=== PATIENT | male | born 1950 | race African-American/Black ===

== ENCOUNTER → 2017-02-26 | Outpatient (CLI) | payer MEDICARE ==
[~2017-02-26] MED LIST: CANDESARTAN CIL16 MG PO; CRESTOR PO; LISINOPRIL10 MG PO; NAPROSYN500 MG PO
--- NOTE | ~2017-02-26 | EKG ---
PATIENT: SHANNON LOGAN UNIT #: [id number] Ventricular Rate: 56 BPM Atrial Rate: 56 BPM P-R Interval: 158 ms QRS Duration: 80 ms Q-T Interval: 400 ms QTC Calculation(Bezet): 386 ms P [place]: 69 degrees Calculated R [place]: 28 degrees Calculated T [place]: 43 degrees Diagnosis Line: Sinus bradycardia Diagnosis Line: Possible Left atrial enlargement Diagnosis Line: Borderline ECG Diagnosis Line: No previous ECGs available Diagnosis Line: Confirmed by BILL YU MD ([id number]) on 02/26/2017 Diagnosis Line: 11:38:42 PM INTERPRETING MD: AIMEE CARROLL
== END | disposition home or self-care (01) ==
LOC: CAMB 12:54
DX: Z01.810 Encounter for preprocedural cardiovascular examination (principal); K42.9 Umbilical hernia without obstruction or gangrene
CPT/HCPCS: 93005

== ENCOUNTER → 2017-03-05 | Day surgery (SDC) | payer MEDICARE ==
--- NOTE | ~2017-03-05 | OR ---
Unit #: [id number] #: [id number] Patient: SHANNON LOGAN [id number] [address] [place], [place] [address] [id number] O MR#: [id number] NAME: SHANNON LOGAN ROOM: Date of Procedure: 03/05/2017 Admission Date: 03/05/2017 Surgeon: Scott Oliveira Jr., M.D. : 1950 Attending Physician: Scott Oliveira Jr., M.D. Primary Care Physician: [facility] OPERATIVE REPORT INDICATIONS FOR PROCEDURE The patient is a 67-year-old black male, who recently presented to the office complaining of a tender chronic incarcerated umbilical hernia. He is brought in this time at his request for repair of this with reduction through an open incision. He understands the procedure including the risks, including that of recurrence, infection, intra-abdominal organ injury, and chronic pain, and consents. PREOPERATIVE DIAGNOSIS Chronic incarcerated umbilical hernia. POSTOPERATIVE DIAGNOSIS Chronic incarcerated umbilical hernia noting approximately 1 to 1.5 cm defect. ANESTHESIA General with LMA and 0.5% Marcaine with epinephrine locally. PROCEDURE PERFORMED Reduction and repair of chronic incarcerated umbilical hernia with a Ventralex small mesh internally. DESCRIPTION OF PROCEDURE The patient was positioned in supine position. After being anesthetized, he was prepped and draped in routine fashion for repair and reduction of his umbilical hernia. A small keyhole incision was made over the superior aspect of the umbilicus. This was carried down through the subcutaneous tissue down to the area of the hernia. The hernia was dissected off the posterior aspect of the dermis of the umbilicus with a #10-blade scalpel and after it was freed up, the tissue around the base was then scored with Bovie cautery. The fatty tissue incarcerated within the hernia was then reduced under the muscle and a small Ventralex mesh was placed through the defect under the muscle and brought up against the anterior abdominal wall. The straps were tacked with interrupted 0 Ethibond sutures and the straps were then excised. The fascial opening was then closed with interrupted 0 Ethibond sutures using modified Bony-Sales type stitch. The wound was irrigated after hemostasis achieved with Bovie cautery. The umbilicus was tacked to the fascia with 3-0 Vicryl suture and subcutaneous tissue was approximated with interrupted 3-0 Vicryl sutures. Skin edges were approximated with stainless-steel skin clips and skin stapling device. Sterile compressive dressing was applied externally. Estimated blood loss less than 50 mL. The patient received less than 1000 mL Unit #: [id number] #: [id number] Patient: DOREEN,SHANNON crystalloid solution during the procedure. Sponges and instrument counts were correct x3. No drains were used. No complications. The patient was taken to the recovery room with stable vital signs in satisfactory condition. Dictated by... Scott Oliveira Jr., M.D. JMB/simba TD: 03/05/2017 09:28 JOB #: [id number] OPERATIVE REPORT Page 1 of 1 X Scott Oliveira MD X PROCEDURE OPERATIVE NOTE
== END | disposition home or self-care (01) ==
LOC: CSUR 05:46
DX: K42.0 Umbilical hernia with obstruction, without gangrene (principal); I10 Essential (primary) hypertension; E78.00 Pure hypercholesterolemia, unspecified; Z88.6 Allergy status to analgesic agent
CPT/HCPCS: J0690; J2250; J2405; J3010

== ENCOUNTER 2017-03-18 02:48 | Observation (INO) | payer MEDICARE ==
--- NOTE | ~2017-03-18 | CR4 ---
[facility] Service of [facility] RADIOLOGY TEXT RESULTS PATIENT: SHANNON LOGAN LOCATION: [place] [address] : [birth year] UNIT #: [id number] AGE: [address]: Prince Henderson SEX: M ORDER DR: [id number] [facility] [address] [facility]. [place], [place] [address] [id number] I MR#: [id number] Acc #: [id number] NAME: SHANNON LOGAN : 1950 SEX: M STUDY DATE/TIME: 03/18/2017 8:02 UNIT: [facility] ROOM: [facility] STUDY DESCRIPTION: CR Abdomen Flat Upright or Dec Attending Physician: Prince Henderson M.D. Ordering Physician: Scott Oliveira Jr., M.D. Primary Care Physician: [facility]. MEDICAL IMAGING REPORT This report is preliminary unless electronic signature is present EXAMINATION Flat upright abdomen of 03/18/2017 COMPARISON STUDIES None. HISTORY SUPPLIED Umbilical hernia with abdominal pain beginning 2 weeks ago. FINDINGS A KUB is obtained. There is evidence of recent surgery with skin clips near the umbilicus. There are dilated small bowel loops centrally in the abdomen. Some gas is present within the rectal vault. No free air is identified on the current study. CONCLUSION 1. Evidence of recent surgery. Small bowel distension centrally which may represent early or partial small bowel obstruction. Postoperative ileus is a consideration but there is certainly no evidence of colonic ileus. Dictated by... Anurag Siegel M.D. THIS IS AN ELECTRONICALLY VERIFIED REPORT Anurag Siegel M.D. at 03/18/2017 4:52 PM ZAIDA/armando TD: 03/18/2017 09:43 JOB #: [id number] MEDICAL IMAGING REPORT [facility] of [facility] RADIOLOGY TEXT RESULTS PATIENT: SHANNON LOGNA LOCATION: [place] [address] : [birth year] UNIT #: [id number] AGE: [address]: Prince Henderson SEX: M ORDER DR: Page 1 of 1 COPY
--- NOTE | ~2017-03-18 | HP ---
Unit #: [id number] #: [id number] Patient: SHANNON LOGAN [id number] [address] [place], [place] [address] [id number] I MR#: [id number] NAME: SHANNON LOGAN ROOM: 479 Age: 67 Sex: M Admission Date: 03/18/2017 : 1950 Attending Physician: Prince Henderson M.D. Primary Care Physician: [facility]. HISTORY AND PHYSICAL CHIEF COMPLAINT Abdominal pain with nausea and vomiting. PRESENT ILLNESS The patient is a 67-year-old black male who is 13 days status post open umbilical hernia repair. The patient had done well up until the last several days when he ran out of pain medication and developed more pain and presented to the emergency room with this complaint. He also has had mid epigastric abdominal pain with some nausea and vomiting he thinks was related to something that he ate the other day. He has had no significant fever. No other symptoms at home. He still has his buffy in place. PAST MEDICAL HISTORY Unchanged since his surgery two weeks ago. He has had no other problems. REVIEW OF SYSTEMS A twelve system review has been performed, which is nonremarkable except for that noted in the present illness. PHYSICAL EXAMINATION VITAL SIGNS: The patient is afebrile. Vital signs are normal. HEENT: Nonremarkable. NECK: Supple. CHEST: There is equal bilateral expansion with bilateral equal breath sounds. LUNGS: Clear bilaterally. HEART: Regular rhythm without murmurs or gallops. No evidence of cardiomegaly clinically. ABDOMEN: Soft, there is firmness in the periumbilical area from his recent surgeries expected with buffy still in place. There is no evidence of any recurrent hernia. There is some mild tenderness in the mid epigastrium and right upper quadrant. There is no masses or organomegaly. No gross abdominal distention. No guarding or rebound. Active vital signs present. No evidence of ascites. EXTREMITIES: Full range of motion without limitations. There is no evidence of peripheral edema. BACK: No CVA tenderness. NEUROLOGICAL: Grossly intact. DIAGNOSTIC STUDIES LABORATORY VALUES: Are normal. No x-rays were performed. PLAN Plan will be to go ahead with workup of his gallbladder. This could Unit #: [id number] #: [id number] Patient: SHANNON LOGAN possibly be coincidental. Also will get a KUB and upright of the abdomen. His buffy can come out today since he is 13 days postop. Dictated by Scott Oliveira Jr., M.D. EDINSON/sunita TD: 03/18/2017 07:54 JOB #: [id number] HISTORY AND PHYSICAL Page 1 of 1 X Scott Oliviera MD X HISTORY AND PHYSICAL
--- NOTE | ~2017-03-18 | US67 ---
[facility] A Service of [facility] RADIOLOGY TEXT RESULTS PATIENT: SHANNON LOGAN LOCATION: [place] [address]- : [birth year] UNIT #: [id number] AGE: [address]: Prince Henderson SEX: M ORDER DR: [id number] [place] [id number] [facility]. [place], [place] [address] [id number] I MR#: [id number] Acc #: [id number] NAME: SHANNON LOGAN : 1950 SEX: M STUDY DATE/TIME: 03/18/2017 8:33 UNIT: [facility] ROOM: [address] [place] [address] DESCRIPTION: US Gallbladder Attending Physician: Prince Henderson M.D. Ordering Physician: Scott Oliveira Jr., M.D. Primary Care Physician: [facility]. MEDICAL IMAGING REPORT This report is preliminary unless electronic signature is present EXAM Gallbladder ultrasound 03/18/2017 INDICATION Upper quadrant pain and nausea for 10 hours. History of hernia repair. TECHNIQUE AND COMPARISON Sonographic imaging of the right upper quadrant was performed. No comparisons. FINDINGS The pancreas was obscured by bowel gas and not seen or evaluated. Survey images of the liver are unremarkable with the liver measuring 15.9 cm long axis. No ascites or focal liver mass. The right kidney measures 10.8 cm long axis and is nonobstructed. The gallbladder is sonographically unremarkable. No sonographic Bradford's sign was described. Extrahepatic common bile duct measures 3-4 mm. IMPRESSION 1. Negative right upper quadrant ultrasound. The pancreas is not well visualized or assessed. Dictated by... León Buenrostro M.D. THIS IS AN ELECTRONICALLY VERIFIED REPORT León Buenrostro M.D. at 03/18/2017 11:51 AM Sylvester TD: 03/18/2017 09:47 JOB #: [id number] [facility] A Service of [facility] RADIOLOGY TEXT RESULTS PATIENT: SHANNON LOGAN LOCATION: [facility] [address] : [birth year] UNIT #: [id number] AGE: [address]: Prince Henderson SEX: M ORDER DR: MEDICAL IMAGING REPORT Page 1 of 1 COPY
--- NOTE | ~2017-03-18 | DS ---
Unit #: [id number] #: [id number] Patient: SHANNON LOGAN [id number] [address] [address] [id number] I MR#: [id number] NAME: SHANNON LOGAN ROOM: 47 Age: 67 Sex: M Admission Date: 03/18/2017 : 1950 Discharge Date: 03/19/2017 Attending Physician: Prince Henderson M.D. Primary Care Physician: [facility]. DISCHARGE SUMMARY DIAGNOSIS Abdominal pain secondary to previous open ventral hernia repair. HOSPITAL COURSE Patient is a 67-year-old gentleman who presented with acute abdominal pain following his open ventral hernia procedure. He was admitted to the hospital under suspicion of possible recurrent hernia. His hospital course was relatively uneventful. He was not found to have a recurrent hernia. Gallbladder workup consisting of ultrasound and HIDA scan was normal. He was advanced toward a regular diet which he tolerated. DISPOSITION Patient will be discharged home in good condition. DIET He is to follow a regular diet as tolerated. ACTIVITY Activities were discussed. FOLLOWUP He is to follow up in about two weeks. DISCHARGE MEDICATIONS His medications are his regular home medications and Naprosyn 500 mg q.12 h. p.r.n. Dictated by... Oscar Armenta/supriya TD: 03/19/2017 18:25 JOB #: [id number] Unit #: [id number] #: [id number] Patient: SHANNON LOGAN DISCHARGE SUMMARY Page 1 of 1 X Anurag Gutierrez MD X DISCHARGE SUMMARY
--- NOTE | ~2017-03-18 | NM22 ---
[facility] A Service of [facility] & [facility] RADIOLOGY TEXT RESULTS PATIENT: SHANNON LOGAN LOCATION: [facility] 47- : [birth year] UNIT #: [id number] AGE: [address]: Prince Henderson SEX: M ORDER DR: [id number] [facility] [address] [place], [place] [address] [id number] I MR#: [id number] Acc #: [id number] NAME: SHANNON LOGAN : 1950 SEX: M STUDY DATE/TIME: 03/18/2017 11:57 UNIT: [facility] ROOM: [facility] STUDY DESCRIPTION: NM Hepatobiliary W GB Pharm Attending Physician: Prince Henderson M.D. Ordering Physician: Scott Oliveira Jr., M.D. Primary Care Physician: [facility]. MEDICAL IMAGING REPORT This report is preliminary unless electronic signature is present EXAM HIDA scan with Kinevac CCK 03/18/2017 HISTORY Right upper quadrant abdominal pain, nausea and vomiting, abdominal bloating and cramping for 1 day. FINDINGS The patient received an intravenous injection of 5.2 mCi of technetium-99m tagged Choletec for hepatobiliary imaging. 1 hour following the injection of the radiopharmaceutical, the patient received an intravenous injection of 1.5 mcg of Kinevac. There is homogeneous distribution of the radiotracer throughout the liver. Gallbladder activity was seen by 15 minutes postinjection of the radiopharmaceutical. Following Kinevac injection, the gallbladder ejection fraction was 72.3% (normal is greater than 30%). IMPRESSION Normal HIDA scan with gallbladder ejection fraction of 72.3%. Dictated by... Eduardo Pro M.D. THIS IS AN ELECTRONICALLY VERIFIED REPORT Eduardo Pro M.D. at 03/19/2017 7:29 AM MAUREEN/armando TD: 03/18/2017 15:36 JOB #: [id number] MEDICAL IMAGING REPORT Page 1 of 1 COPY
[2017-03-18 02:41] LABS: BASOPHIL% 0.4 % (0-2.5); EOSINOPHIL# 0.1 X10e3 (0-0.7); EOSINOPHIL% 1.5 % (0.0-7.0); HEMATOCRIT 42.2 % (38.0-50.0); HEMOGLOBIN 14.5 gm/dL (13.0-16.0); LYMPHOCYTE# 1.2 X10e3 (1.0-3.5); MEAN CELL VOLUME 83.9 FL (83-96); MEAN CORPUSCULAR HEMOGLOBIN 28.9 PG (28-34); MEAN CORPUSCULAR HGB CONC 34.4 g/dL (30-36); MEAN PLATELET VOLUME 9.1 FL (6.5-11.5); MONOCYTE# 0.9 X10e3 (0-1.0); MONOCYTE% 9.3 % (3.0-12.0); NEUTROPHIL# 7.6 X10e3 (1.5-7.1); NEUTROPHIL% 76.8 % (40-75); PLATELET COUNT 196 X10e3 (140-420); RED BLOOD COUNT 5.02 X10e (3.90-5.60); RED CELL DISTRIBUTION WIDTH 13.5 % (11.0-15.5)
[2017-03-18 02:43] LABS: DIFF IND NO
[~2017-03-18 02:48] MED LIST changes: -NAPROSYN500 MG PO
[2017-03-18 03:08] LABS: ALBUMIN SERUM 4.2 g/dL (3.5-5.0); BILIRUBIN, DIRECT 0.1 mg/dL (0.0-0.2); BILIRUBIN,INDIRECT 0.7 mg/dL (0.0-0.9); BILIRUBIN,TOTAL 0.8 mg/dL (0.2-2.0); CALCIUM SERUM 9.2 mg/dL (8.4-10.2); GLOM FILT RATE Estimated 90.5 mL/min (>60); POTASSIUM 3.5 mmol/L (3.5-5.1); PROTEIN TOTAL SERUM 7.6 g/dL (6.0-8.3)
[2017-03-18 23:08] LABS: URINE SOURCE CLEAN CATCH
[2017-03-18 23:13] LABS: URINE APPEARANCE CLEAR; URINE BILIRUBIN NEG (NEG); URINE BLOOD NEG (NEG); URINE COLOR YELLOW; URINE GLUCOSE NEG (NEG); URINE KETONE NEG (NEG); URINE LEUKOCYTE ESTERASE NEG (NEG); URINE NITRATE NEG (NEG); URINE PH 6.5 (5-8); URINE PROTEIN NEG (NEG); URINE SPECIFIC GRAVITY 1.011 (1.003-1.035); URINE UROBILINOGEN 0.2 MG/DL (NEG)
[2017-03-18 23:18] LABS: CULTURE INDICATED? NO
[2017-03-19] MEDS ORDERED: NAPROSYN500 MG PO (11:24)
== END 2017-03-19 12:00 | disposition home or self-care (01) ==
LOC: CED 02:48 → CEDOF 03:15 → C4C 04:20
DX: T81.89XA Other complications of procedures, not elsewhere classified, initial encounter (principal); Z88.6 Allergy status to analgesic agent; I10 Essential (primary) hypertension; Z98.890 Other specified postprocedural states; Z79.899 Other long term (current) drug therapy
CPT/HCPCS: 36415; 74020; 76705; 78227; 80048; 80076; 81003; 83690; 85025; 96374; 96375; 96376; 99285; A9537; G0378; J2250; J2270; J2405; J2805; J3010

== ENCOUNTER 2017-05-12 17:42 | Emergency (ER) | payer OTHER ==
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
--- NOTE | ~2017-05-12 | EKG ---
PATIENT: SHANNON LOGAN UNIT #: [id number] Ventricular Rate: 76 BPM Atrial Rate: 76 BPM P-R Interval: 158 ms QRS Duration: 80 ms Q-T Interval: 370 ms QTC Calculation(Bezet): 416 ms P [place]: 60 degrees Calculated R [place]: 67 degrees Calculated T [place]: 68 degrees Diagnosis Line: Normal sinus rhythm Diagnosis Line: Possible Left atrial enlargement Diagnosis Line: Borderline ECG Diagnosis Line: When compared with ECG of 26-FEB-2017 13:16, Diagnosis Line: T wave amplitude has decreased in Anterior leads Diagnosis Line: Confirmed by VITOR OHARA MD ([id number]) on Diagnosis Line: 05/15/2017 8:30:57 AM INTERPRETING MD: LEV CARROLL
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
[~2017-05-12 17:42] MED LIST changes: +NAPROSYN500 MG PO
[2017-05-12 18:20] LABS: BASOPHIL% 0.5 % (0-2.5); DIFF IND NO; EOSINOPHIL# 0.1 X10e3 (0-0.7); EOSINOPHIL% 1.2 % (0.0-7.0); HEMATOCRIT 40.7 % (38.0-50.0); LYMPHOCYTE# 1.2 X10e3 (1.0-3.5); LYMPHOCYTE% 13.9 % (17.0-45.0); MEAN CELL VOLUME 85.1 FL (83-96); MEAN CORPUSCULAR HEMOGLOBIN 29.2 PG (28-34); MEAN CORPUSCULAR HGB CONC 34.3 g/dL (30-36); MEAN PLATELET VOLUME 8.9 FL (6.5-11.5); MONOCYTE# 0.6 X10e3 (0-1.0); NEUTROPHIL# 6.4 X10e3 (1.5-7.1); NEUTROPHIL% 77.4 % (40-75); PLATELET COUNT 180 X10e3 (140-420); RED BLOOD COUNT 4.78 X10e (3.90-5.60); RED CELL DISTRIBUTION WIDTH 14.3 % (11.0-15.5); WHITE BLOOD COUNT 8.3 X10e3 (4.0-10.5)
[2017-05-12 18:36] LABS: POC - CKMB 12.2 ng/mL (0.0-7.9); POC - TROPONIN <0.05 ng/mL (<=0.05)
[2017-05-12 18:39] LABS: ALBUMIN SERUM 4.2 g/dL (3.5-5.0); BILIRUBIN, DIRECT 0.1 mg/dL (0.0-0.2); BILIRUBIN,INDIRECT 0.8 mg/dL (0.0-0.9); BILIRUBIN,TOTAL 0.9 mg/dL (0.2-2.0); CALCIUM SERUM 9.4 mg/dL (8.4-10.2); CREATININE SERUM 1.1 mg/dL (0.6-1.4); GLOM FILT RATE Estimated 80.7 mL/min (>60); POTASSIUM 3.7 mmol/L (3.5-5.1); PROTEIN TOTAL SERUM 7.5 g/dL (6.0-8.3)
== END 2017-05-12 23:12 | disposition hospice, home (50) ==
LOC: SED 17:42
PROVIDERS: Emergency Medicine
DX: S12.401A Unspecified nondisplaced fracture of fifth cervical vertebra, initial encounter for closed fracture (principal); S12.100A Unspecified displaced fracture of second cervical vertebra, initial encounter for closed fracture; J93.9 Pneumothorax, unspecified; S20.219A Contusion of unspecified front wall of thorax, initial encounter; Z88.8 Allergy status to other drugs, medicaments and biological substances; V89.2XXA Person injured in unspecified motor-vehicle accident, traffic, initial encounter; Y92.410 Unspecified street and highway as the place of occurrence of the external cause
CPT/HCPCS: 32551; 36415; 70450; 71010; 71260; 72125; 80048; 80076; 82550; 82553; 83690; 84484; 85025; 93005; 96361; 96374; 96375; 99285; J2270; J2405; Q9967

== ENCOUNTER 2017-05-21 15:17 | Emergency (ER) | payer MEDICARE ==
--- NOTE | ~2017-05-21 | CR63 ---
[facility]. [facility] A Service of [facility] RADIOLOGY TEXT RESULTS PATIENT: SHANNON LOGAN LOCATION: SED : 51 UNIT #: [id number] AGE: [address]: Valentina Love MD SEX: M ORDER DR: [id number] [place] [id number] E MR#: [id number] Acc #: [id number] NAME: SHANNON LOGAN : 1950 SEX: M STUDY DATE/TIME: 05/21/2017 15:58 UNIT: SED ROOM: STUDY DESCRIPTION: CR Chest 2 View Attending Physician: Valentina Love M.D. Ordering Physician: Valentina Love M.D. Primary Care Physician: [facility] MEDICAL IMAGING REPORT This report is preliminary unless electronic signature is present. EXAM PA and lateral chest. INDICATION Chest pain for two to three days. Comparison with 05/12/2017. FINDINGS There is stable atelectasis or consolidation in the left base. No evidence for pneumothorax. No new infiltrates. Heart size stable. IMPRESSION No pneumothorax. Stable atelectasis or consolidation within the left lung base. Dictated by... Brent Dickerson M.D. THIS IS AN ELECTRONICALLY VERIFIED REPORT Brent Dickerson M.D. at 05/22/2017 8:17 AM SUSIE/sugar TD: 05/21/2017 23:01 JOB #: [id number] MEDICAL IMAGING REPORT Page 1 of 1
== END 2017-05-21 17:39 | disposition home or self-care (01) ==
LOC: SED 15:17
DX: S20.212A Contusion of left front wall of thorax, initial encounter (principal); E78.5 Hyperlipidemia, unspecified; I10 Essential (primary) hypertension; Z88.8 Allergy status to other drugs, medicaments and biological substances; Z79.899 Other long term (current) drug therapy; X58.XXXA Exposure to other specified factors, initial encounter; Y92.9 Unspecified place or not applicable
CPT/HCPCS: 71020; 99284